=== PATIENT | male | born 1955 | race Hispanic/Latino ===

== ENCOUNTER 2020-06-17 20:54 | Emergency (ER) | payer OTHER ==
[2020-06-17 22:34] LABS: #Basophils 0.1 thou/uL (0.0-0.2); #Eosinphils 0.1 thou/uL (0.0-0.7); #Lymphocytes 1.1 thou/uL (1.20-3.40); #Monocytes 0.6 thou/uL (0.11-0.59); #Neutrophils 3.6 thou/uL (1.40-6.50); %Basophils 1.2 % (0.0-1.0); %Eosinophils 2.4 % (0.0-10.0); %Lymphocytes 19.4 % (21.0-51.0); %Monocytes 10.2 % (0.0-10.0); %Neutrophils 66.8 % (42.0-75.0); Hemoglobin 13.2 g/dL (14.0-18.0); Mean Corpuscular HGB CONC 32.7 g/dL (32.0-36.0); Mean Corpuscular Hemoglobin 32.7 pg (27.0-31.0); Mean Platelet Volume 7.6 fL (7.4-10.4); Platelet Count 118 thou/uL (130-400); RBC Distribution Width 13.9 % (11.5-14.5); Red Blood Cell (RBC) Count 4.03 mill/uL (4.70-6.10); White Blood Cell (WBC) Count 5.4 thou/uL (4.8-10.8)
[2020-06-17 22:49] LABS: ALT (SGPT) 11 U/L (8-55); AST (SGOT) 21 U/L (5-34); Albumin 3.4 g/dL (3.4-4.8); Alkaline Phosphatase 80 U/L (40-110); Anion Gap 12 mmol/L (10-20); BUN (Urea Nitrogen) 17 mg/dL (8.4-25.7); Bilirubin, Total 0.7 mg/dL (0.2-1.2); Calc. Creatinine Clearance 0 mL/min (70-130); Calcium 8.3 mg/dL (7.8-10.44); Carbon Dioxide 25 mmol/L (23-31); Chloride 105 mmol/L (98-107); Estimated GFR-MDRD Greater than 90; Globulin 3.4 g/dL (2.4-3.5); Glucose 108 mg/dL (80-115); Protein, Total 6.8 g/dL (5.8-8.1); Sodium 138 mmol/L (136-145)
--- NOTE | 2020-06-18 07:07 | RAD ---
SINGLE VIEW CHEST: Date: 06/17/2020 COMPARISON: None. HISTORY: Leg swelling for 2 weeks. FINDINGS: Single view of the chest shows a normal sized cardiomediastinal silhouette with atherosclerotic calci fications in the aorta. Increased interstitial lung markings are seen. There is no evidence of consol idation, mass, or pleural effusion. Degenerative changes are seen in the spine and shoulders. IMPRESSION: No evidence of acute cardiopulmonary disease. POS: [facility]
--- NOTE | 2020-06-18 07:37 | ULT ---
LEFT LOWER EXTREMITY VENOUS ULTRASOUND: COMPARISON: None. HISTORY: Left lower extremity pain and redness. TECHNIQUE: Multiplanar, rivas scale, and color Doppler images were obtained in a left lower extremity venous ultr asound. Spectral analysis of the Doppler waveforms was performed. FINDINGS: The left common femoral vein, profunda femoral vein, superficial femoral vein, and popliteal vein are normal in appearance without visible thrombus. These vessels demonstrate normal compression, flow, and augmentation. The posterior tibial vein and greater saphenous vein are also patent. IMPRESSION: No evidence of left lower extremity deep vein thrombosis. POS: [facility]
== END 2020-06-18 00:30 ==
LOC: ERS 20:54 → EEVIPCON 20:54 → ERS 06-18 00:30
DX: R60.0 Localized edema (principal); I11.0 Hypertensive heart disease with heart failure; Z79.84 Long term (current) use of oral hypoglycemic drugs; Z79.899 Other long term (current) drug therapy; I50.9 Heart failure, unspecified
CPT/HCPCS: 36415; 71045; 80053; 83605; 83880; 84484; 85025; 87040; 93005